=== PATIENT | female | born 1995 | race Caucasian/White ===

== ENCOUNTER → 2024-05-26 | Outpatient (CLI) | payer OTHER ==
[~2024-05-26] MED LIST: PROHANCE 279.3MG/ML 15ML VIAL As Ordered ONE
== END ==
LOC: M RAD 15:08
PROVIDERS: ATTEND Family Medicine
DX: R55 Syncope and collapse (principal)
CPT/HCPCS: 70553; A9576

== ENCOUNTER 2024-12-17 19:27 | Emergency (ER) | payer OTHER ==
[~2024-12-17] VITALS: Ht 167.6 cm; Wt 83.6 kg
[2024-12-17] MEDS ORDERED: NALO4SPR20 (21:15)
[2024-12-17] MEDS ORDERED: POLY510P14 PO (21:15)
[2024-12-17] MEDS ORDERED: YAZ1TAB PO (21:15)
[2024-12-17] MEDS ORDERED: HOME MED LIST COMPLETE! XX SCH (21:20)
[2024-12-17] MEDS: NS (Normal Saline) 0.9% 1,000 ML IV ONE (21:25)
[2024-12-17] MEDS: MORPHINE 2 MG/ML 1 ML VIAL IV PRN (21:41)
[2024-12-17] MEDS: ONDANSETRON 4MG 2ML VIAL IV ONE (21:42)
[2024-12-17 21:52] LABS: BASO # 0.1 10^3/uL (0.0-0.2); BASO % 0.7 % (0.0-1.0); EOS # 0.2 10^3/uL (0.0-0.5); EOS % 2.8 % (0.0-3.0); LYMPH # 3.0 10^3/uL (1.5-5.0); LYMPH % 40.6 % (24.0-44.0); MONO # 0.5 10^3/uL (0.0-0.8); MONO % 6.3 % (2.0-8.0); NEUTROPHILS # 3.7 10^3/uL (1.5-8.5); NEUTROPHILS % 49.2 % (36.0-66.0); PLATELET COUNT, AUTOMATED 300 10^3/uL (150-450)
[2024-12-17] MEDS: GASTROGRAFIN SOLUTION 30ML PO SCH (21:58)
[2024-12-17 22:05] LABS: INR 0.93
[2024-12-17 22:12] LABS: ALT/SGPT 37 U/L (7.0-40); AST/SGOT 26 U/L (<34); CALCIUM LEVEL 8.2 MG/DL (8.5-10.1); CARBON DIOXIDE LEVEL 25 MMOL/L (20-31); CHLORIDE LEVEL 106 MMOL/L (98-107); CREATININE FOR GFR 0.74 MG/DL (0.55-1.30); GLOMERULAR FILTRATION RATE > 90.0 (>60); POTASSIUM SERUM 3.9 MMOL/L (3.5-5.1); SODIUM LEVEL 142 MMOL/L (136-145)
[2024-12-17] MEDS ORDERED: ISOVUE-370 76% 100 ML VIAL As Ordered ONE (23:30)
[2024-12-18] MEDS: MORPHINE 4 MG/ML 1 ML VIAL IV PRN (02:18)
[2024-12-18] MEDS: SILVER NITRATE APPLICATOR (1 = QTY 10) TOP ONE (03:35)
[2024-12-18] MEDS ORDERED: OXYC-517 PO (04:37)
[2024-12-18 04:51] VITALS: BP 122/78; TEMP 98; O2SAT 99
== END 2024-12-18 04:56 | disposition home or self-care (01) ==
LOC: M ED 19:27
DX: R10.9 Unspecified abdominal pain (principal); K94.01 Colostomy hemorrhage; R16.0 Hepatomegaly, not elsewhere classified; Z88.8 Allergy status to other drugs, medicaments and biological substances; Z79.899 Other long term (current) drug therapy
CPT/HCPCS: 74177; 80053; 83605; 83690; 84145; 85025; 85610; 85730; 86850; 86900; 86901; 96374; 96375; 96376; 99285; J2405; Q9963; Q9967

== ENCOUNTER → 2025-01-26 | Outpatient (CLI) | payer OTHER ==
[~2025-01-26] MED LIST changes: +NALO4SPR20; +OXYC-517 PO; +POLY510P14 PO; -PROHANCE 279.3MG/ML 15ML VIAL As Ordered ONE; +PROHANCE 279.3MG/ML 15ML VIAL ONE; +YAZ1TAB PO
== END ==
LOC: M PLAIMG 10:32
PROVIDERS: ATTEND General Practice
DX: N90.89 Other specified noninflammatory disorders of vulva and perineum (principal); N82.3 Fistula of vagina to large intestine
CPT/HCPCS: 72197; A9576